=== PATIENT | female | born 1990 | race Caucasian/White ===

== ENCOUNTER → 2021-11-01 | Outpatient (CLI) | payer OTHER ==
[~2021-11-01] MED LIST: FLAGYL500 MG PO; KEFLEX500 MG PO
[2021-11-01 08:12] LABS: HEMOGLOBIN 12.7 gm/dl (12.3-15.3); RED BLOOD COUNT 3.92 M/UL (4.00-5.10); WHITE BLOOD COUNT 6.3 K/UL (4.5-11.0)
[2021-11-02 08:15] LABS: A/G RATIO 1.7 (1.2-2.2); ALKALINE PHOSPHATASE, S 48 IU/L (44-121); ALT (SGPT) 83 IU/L (0-32); AST (SGOT) 45 IU/L (0-40); BILIRUBIN, TOTAL 0.3 mg/dL (0.0-1.2); BUN 18 mg/dL (6-20); BUN/CREATININE RATIO 27 (9-23); CALCIUM, SERUM 9.2 mg/dL (8.7-10.2); CARBON DIOXIDE, TOTAL 19 mmol/L (20-29); CHLORIDE, SERUM 104 mmol/L (96-106); CHOLESTEROL, TOTAL 133 mg/dL (100-199); CREATININE, SERUM 0.67 mg/dL (0.57-1.00); EGFR IF AFRICN AM 136 (>59); EGFR IF NONAFRICN AM 118 (>59); GLOBULIN, TOTAL 2.6 g/dL (1.5-4.5); GLUCOSE, SERUM 74 mg/dL (65-99); HDL CHOLESTEROL 65 mg/dL (>39); LDL CHOLESTEROL CALC 56 mg/dL (0-99); LDL/HDL RATIO 0.9 ratio (0.0-3.2); POTASSIUM, SERUM 4.2 mmol/L (3.5-5.2); PROTEIN, TOTAL, SERUM 7.1 g/dL (6.0-8.5); SODIUM, SERUM 137 mmol/L (134-144); TRIGLYCERIDES 53 mg/dL (0-149); VITAMIN D, 25-HYDROXY 34.3 ng/mL (30.0-100.0)
== END ==
LOC: LAB 07:25
PROVIDERS: Nurse Practitioner Family
DX: Z13.220 Encounter for screening for lipoid disorders (principal); Z13.21 Encounter for screening for nutritional disorder; Z13.29 Encounter for screening for other suspected endocrine disorder; F41.9 Anxiety disorder, unspecified; F32.A Depression, unspecified
CPT/HCPCS: 36415; 80053; 80061; 82607; 84439; 84443; 85025